=== PATIENT | female | born 1955 | race Caucasian/White ===

== ENCOUNTER 2024-10-21 15:37 | Emergency (ER) | payer OTHER ==
[~2024-10-21] VITALS: Ht 162.6 cm; Wt 59.0 kg
[2024-10-21 15:39] VITALS: O2SAT 99
[2024-10-21 16:50] LABS: HEMATOCRIT. 40.7 % (36.0-48.0); HEMOGLOBIN. 13.7 g/dL (12.0-16.0); MEAN CORPUSCULAR HEMOGLOBIN 31.5 pg (28.0-32.0); MEAN CORPUSCULAR HGB CONC 33.8 g/dL (31.0-37.0); MEAN PLATELET VOLUME 9.6 fl (7.4-10.4); PLATELET 164 x1000/uL (130-400); RED BLOOD CELL COUNT 4.37 mill/uL (4.2-5.4); RED CELL DISTRIBUTION WIDTH 12.5 % (11.6-14.6); WHITE BLOOD COUNT 12.4 x1000/uL (4.5-11.0)
[2024-10-21 16:51] LABS: DIFFERENTIAL COMMENT 1
[2024-10-21 16:55] LABS: CHLORIDE 106 mEq/L (98-107); POTASSIUM 3.9 mEq/L (3.5-5.1); SODIUM 139 mEq/L (136-145)
[2024-10-21 16:56] LABS: CARBON DIOXIDE 24 mEq/L (21-32)
[2024-10-21 17:01] VITALS: BP 141/77; PULSE 76; RESP 18; TEMP 37.1; O2SAT 97
[2024-10-21 17:01] LABS: CREATININE 0.6 mg/dL (0.6-1.0); GLUCOSE 142 mg/dL (70-105); PROTHROMBIN TIME 10.9 sec (9.6-11.0); UREA NITROGEN BLOOD 13 mg/dL (9-23)
[2024-10-21] MEDS: IBUPROFEN 600MG TABLET PO ONE (17:17)
[2024-10-21] MEDS: ACETAMINOPHEN 325MG TABLET PO ONE (17:17)
[2024-10-21 17:46] LABS: PLATELET ESTIMATE NORMAL
== END 2024-10-21 17:45 | disposition left against medical advice (07) ==
LOC: ER 15:37 → CANBEDREQ 17:15 → ER 17:45
DX: S72.092A Other fracture of head and neck of left femur, initial encounter for closed fracture (principal); E78.00 Pure hypercholesterolemia, unspecified; I10 Essential (primary) hypertension; Z88.5 Allergy status to narcotic agent; W01.0XXA Fall on same level from slipping, tripping and stumbling without subsequent striking against object, initial encounter; Y93.89 Activity, other specified; Y92.89 Other specified places as the place of occurrence of the external cause; Y99.8 Other external cause status
CPT/HCPCS: 36415; 73502; 73560; 80048; 85025; 99284